=== PATIENT | female | born 1925 | race Caucasian/White ===

== ENCOUNTER 2016-11-12 12:05 | Emergency (ER) | payer MEDICARE, BC ==
[~2016-11-12] VITALS: Ht 162.6 cm; Wt 81.6 kg
[~2016-11-12 12:05] MED LIST: ACET325T21 PO; ACET325T9 PO; ACET500T68 PO; ALPR0.254 PO; AMIT50TA PO; AMLO5TAB2 PO; ASPI-612 PO; ATORVASTATIN CA80 MG PO; CALC200T51 PO; CALC300T5 PO; CARV12.5 PO; CELE200C PO; CEPH-264 PO; CHOL10002 PO; CLOP75TA57 PO; CRESTOR20 MG PO; DIAZ5TAB PO; DIPH1TAB PO; DOCU-109 PO; ESZO3TAB28 PO; FURO20TA3 PO; HYDR-2678 PO; HYDR-2758 PO; HYDR30CR61 RC; LANS30CA66 PO; LIDO700A4 TP; LISI-338 PO; LISI5TAB PO; METO10TA81 PO; MULT1TAB57 PO; ONDA4TAB7 PO; PANT40TA5 PO; PRED-220 PO; RAMI2.5C PO; SENN1TAB9 PO; SUCR1TAB35 PO; SULF1TAB24 PO; ZOLP5TAB PO
[2016-11-12] MEDS ORDERED: HYDROcodone/APAP 5/325MG 1 TAB TABLET PO ONE (12:30)
--- NOTE | 2016-11-12 13:17 | RAD ---
Indication: Right shoulder pain. Time of exam 12:41 PM There are glenohumeral joint degenerative changes with joint space narrowing and marginal spurring. Glenohumeral and acromial clavicular alignment are normal. No fracture or dislocation is identified. Impression: Degenerative changes to the right shoulder. No acute bony abnormality is detected.
--- NOTE | 2016-11-12 15:00 | ED.ADGEN ---
Past Medical History Past Medical History: Anxiety, Arthritis, CAD, CHF, Constipation, COPD, CVA, Depression, GERD, High Cholesterol, Hypertension, [place] Additional Past Medical Histor: chronic abd pain Past Surgical History: Other Additional Past Surgical Histo: HEART SURGERY Alcohol Use: None Drug Use: None Adult General Chief Complaint Chief Complaint: SHOUDLER HPI HPI Patient is a 89 year old halfway patient presents with right shoulder pain , tenderness recollection of injury. Patient was evaluated for this complaint 2 days ago and had ridging studies of right arm and right forearm which were negative for acute injury. Patient is on Plavix, she also has some subcutaneous purpura. Patient's arm does not feel tighter tense. She has good pulses in range of motion in wrist elbow and shoulder. Pulses are 2+. There is no neurologic deficits. Right shoulder pain reproduces with palpation and active range of motion. Patient chest pain, shortness of breath, or neck pain. She denies any other acute symptoms or complaints. Review of Systems Review of Systems Review of symptoms as per history of present illness. All other review of symptoms are negative. Current Medications Current Medications Current Medications Medications (Trade) Dose Ordered Sig/Bharath Start Time Stop Time Status Last Admin Dose Admin Acetaminophen/ Hydrocodone Bitart (Lortab 5/325) 1 tab 1X ONCE 11/12/16 12:30 11/12/16 12:31 DC 11/12/16 12:28 1 TAB Allergies Allergies Allergies Coded Allergies Type Severity Reaction Last Updated Verified meperidine Allergy Intermediate 12/30/14 Yes phenobarbital Allergy Intermediate 09/02/14 Yes Physical Exam Physical Exam Constitutional: Well developed, well nourished, no acute distress, non-toxic appearance. HENT: Normocephalic, atraumatic, bilateral external ears normal, oropharynx moist, no oral exudates, nose normal. Eyes: PERRLA, EOMI, conjunctiva normal. Neck: Normal range of motion, no nontender tenderness. Cardiovascular:Heart rate regular rhythm, no murmur. Lungs & Thorax: Bilateral breath sounds clear to auscultation. Abdomen: Bowel sounds normal, soft, no tenderness, no masses, no pulsatile masses. Skin: Warm, dry. Back: No tenderness, no CVA tenderness. Extremities: Right upper extremity, no deformity, swelling. Subcutaneous purpura noted and right humeral, forearm region. Reasonable shoulder pain with active range of motion. Full range of motion right elbow and right wrist. Arm does not feel tight and tense. No palpable cords. Radial pulses 2+. No cellulitis or evidence of infection. Neurologic: Alert and oriented X 3, M.D., normal motor function, sensation. Psychologic: Affect normal, judgement normal, mood normal. Current Patient Data Vital Signs Vital Signs Date Time Temp Pulse Resp B/P (MAP) Pulse Ox O2 Delivery O2 Flow Rate FiO2 11/12/16 15:04 82 136/59 (84) 91 Room Air 11/12/16 12:10 98.9 20 98.9 EKG EKG [] Radiology/Procedures Radiology/Procedures [Shoulder x-ray: Degenerative changes per radiology report.] Course & Med Decision Making Course & Med Decision Making Pertinent Labs and Imaging studies reviewed. (See chart for details) [Reproducible right shoulder pain without evidence of acute injury. Other acute diagnoses considered, but thought unlikely. No additional workup indicated at this time. Case discussed with Dr. Rosales, will see patient on outpatient basis. Patient discharged home in sling.] Dragon Disclaimer Dragon Disclaimer This electronic medical record was generated, in whole or in part, using a voice recognition dictation system. JOANNA YANEZ DO Nov 12, 2016 15:00
[2016-11-12 15:04] VITALS: BP 136/59
== END 2016-11-12 15:45 | disposition home or self-care (01) ==
LOC: ER 12:05
DX: M25.511 Pain in right shoulder (principal); D69.2 Other nonthrombocytopenic purpura; E78.00 Pure hypercholesterolemia, unspecified; F32.9 Major depressive disorder, single episode, unspecified; F41.9 Anxiety disorder, unspecified; I11.0 Hypertensive heart disease with heart failure; I50.9 Heart failure, unspecified; I25.10 Atherosclerotic heart disease of native coronary artery without angina pectoris; J44.9 Chronic obstructive pulmonary disease, unspecified; K21.9 Gastro-esophageal reflux disease without esophagitis; I25.2 Old myocardial infarction; M19.90 Unspecified osteoarthritis, unspecified site; G89.29 Other chronic pain; Z86.73 Personal history of transient ischemic attack (TIA), and cerebral infarction without residual deficits; Z79.02 Long term (current) use of antithrombotics/antiplatelets; Z88.8 Allergy status to other drugs, medicaments and biological substances
CPT/HCPCS: 73030; 99284

== ENCOUNTER 2016-12-09 07:26 | Inpatient (IN) | payer MEDICARE, BC ==
[~2016-12-09] VITALS: Ht 162.6 cm; Wt 87.1 kg
[2016-12-09] MEDS ORDERED: IPRATRPIUM/ALBUTEROL 0.5/2.5MG 3 ML NEBU. NEB ONE (08:00)
[2016-12-09] MEDS ORDERED: IV NORMAL SALINE 1000ML BAG 1,000 ML IV ONE (08:00)
--- NOTE | 2016-12-09 08:03 | ED.ADGEN ---
Past Medical History Past Medical History: Anxiety, Arthritis, CAD, CHF, Constipation, COPD, CVA, Depression, GERD, High Cholesterol, Hypertension, [place] Additional Past Medical Histor: chronic abd pain Past Surgical History: Other Additional Past Surgical Histo: HEART SURGERY Alcohol Use: None Drug Use: None Adult General Chief Complaint Chief Complaint: ALTERED MENTAL STATUS HPI HPI Patient is a 89 year old woman, history of COPD, CVA, hypertension, CAD status post [place], chronic abdominal pain, anxiety, depression, who presents the emergency department with a report of altered mental status per nursing facility. Upon arrival, patient noted be febrile, 101.2 rectally, tachycardic in the low 100s, oxygen saturation in the mid 80s on room air. Patient does not use oxygen at baseline. Patient states that she is feeling "okay", is answering questions appropriately in the ED, and denying complaints. No recent antibiotic use per reports, patient is a history of recurrent UTIs. [facility] staff [facility] for [facility] information. Review of Systems Review of Systems Constitutional: Denies fever or chills. [] Eyes: Denies change in visual acuity. [] HENT: Denies nasal congestion or sore throat. [] Respiratory: Denies cough or shortness of breath. [] Cardiovascular: Denies chest pain or edema. [] GI: Denies abdominal pain, nausea, vomiting, bloody stools or diarrhea. [] : Denies dysuria. [] Musculoskeletal: Denies back pain or joint pain. [] Integument: Denies rash. [] Neurologic: Denies headache, focal weakness or sensory changes. [] Endocrine: Denies polyuria or polydipsia. [] Lymphatic: Denies swollen glands. [] Psychiatric: Denies depression or anxiety. [] Patient is denying complaints, but is limited in her history Current Medications Current Medications Current Medications Medications (Trade) Dose Ordered Sig/Bharath Start Time Stop Time Status Last Admin Dose Admin Albuterol/ Ipratropium (Duoneb) 3 ml 1X ONCE 12/09/16 08:00 12/09/16 08:01 DC 12/09/16 08:24 3 ML Sodium Chloride 1,000 ml @ 1,000 mls/hr 1X ONCE 12/09/16 08:00 12/09/16 08:59 DC 12/09/16 09:39 1,000 MLS/HR Allergies Allergies Allergies Coded Allergies Type Severity Reaction Last Updated Verified meperidine Allergy Intermediate 12/30/14 Yes phenobarbital Allergy Intermediate 09/02/14 Yes Physical Exam Physical Exam Constitutional: Well developed, well nourished, ill in appearance. [] HENT: Normocephalic, atraumatic, bilateral external ears normal, oropharynx moist, no oral exudates, nose normal. [] Eyes: PERRLA, EOMI, conjunctiva normal, no discharge. [] Neck: Normal range of motion, no tenderness, supple, no stridor. [] Cardiovascular: Tachycardic, no murmur, S1, S2, no rubs or gallops, soft heart sounds. [] Lungs & Thorax: Coarse breath sounds and wheezing noted scattered throughout, patient on nasal cannula, 2 L with oxygen saturation in the mid 90s, "mouth breathing". [] Abdomen: Bowel sounds normal, soft, no tenderness, no rebound, rigidity, no guarding, no masses, no pulsatile masses. [] Skin: Warm, dry, no erythema, no rash. [] Back: No tenderness, no CVA tenderness. [] Extremities: No tenderness, no cyanosis, no clubbing, ROM intact, no edema. Negative Homans sign. [] Neurologic: Alert and oriented X 3, normal motor function, normal sensory function, no focal deficits noted. [] Psychologic: Affect normal, judgement normal, mood normal. [] Current Patient Data Vital Signs Vital Signs Date Time Temp Pulse Resp B/P (MAP) Pulse Ox O2 Delivery O2 Flow Rate FiO2 12/09/16 08:28 101.8 102 30 192/78 (116) 88 Room Air 101.8 Lab Values Laboratory Tests Test 12/09/16 08:15 Urine Collection Type U cath Urine Color Yellow Urine Clarity Cloudy Urine pH 6.5 Urine Specific [place] 1.015 Urine Protein 30 mg/dL (NEG-TRACE) Urine Glucose (UA) Negative mg/dL (NEG) Urine Ketones (Stick) Negative mg/dL (NEG) Urine Blood Moderate (NEG) Urine Nitrite Positive (NEG) Urine Bilirubin Negative (NEG) Urine Urobilinogen Dipstick 2.0 mg/dL (0.2 mg/dL) Urine Leukocyte Esterase Moderate (NEG) Urine RBC Fobs /HPF (0-2) Urine WBC >40 /HPF (0-4) Urine Squamous Epithelial Cells Few /LPF Urine Bacteria Many /HPF (0-FEW) Urine Hyaline Casts Few /HPF Urine Mucus Marked /LPF Urine Opiates Screen Pos (NEG) Urine Methadone Screen Neg (NEG) Urine Barbiturates Neg (NEG) Urine Phencyclidine Screen Neg (NEG) Urine Amphetamine/Methamphetamine Neg (NEG) Urine Benzodiazepines Screen Neg (NEG) Urine Cocaine Screen Neg (NEG) Urine Cannabinoids Screen Neg (NEG) Urine Ethyl Alcohol Neg (NEG) EKG EKG EC: Sinus tachycardia, heart rate 104 bpm, left axis deviation, QTC of 445, LA 108, QRS of 98, no ST depressions or elevations, mild baseline artifact noted, abnormal ECG, does not meet STEMI criteria. As interpreted by me. [] Radiology/Procedures Radiology/Procedures [][facility] [address] [place] [address] IMAGING REPORT Signed PATIENT: ISABEL BUTLER ACCOUNT: [id number] : 1925 LOCATION: ER AGE: 89 SEX: F EXAM STATUS: REG ER ORD. PHYSICIAN: COLBY EATON DO REASON: AMS PROCEDURE: CHEST AP ONLY Indication change in mental status. Suspect CVA. Protocol exam. Postoperative changes are noted. Heart size is unchanged. There is no gross congestive heart failure. There is suggested volume loss in the left lower lobe. This may reflect atelectasis and pleural fluid. Pneumonia is less likely. There is no pneumothorax. IMPRESSION: Suspect volume loss in the left lower lobe. DICTATED and SIGNED BY: JANA DICKSON MD DATE: 12/09/16 08 CC: REY ROSALES MD; COLBY EATON DO ~ Course & Med Decision Making Course & Med Decision Making Pertinent Labs and Imaging studies reviewed. (See chart for details) Patient ill-appearing, concern for sepsis, paperwork nu from the nursing facility does not indicate if patient is full code or DNR, there are 2 conflicting orders noted, nursing facility contacted, and confirmed the patient is full code. Oxygen saturation improved in 2 L cannula stated, patient initiated on sepsis protocol with initiation of IV fluids, chest x-ray concerning for possible pneumonia, consistent with patient's examination findings, nitrate positive urinary tract infection also noted. Patient initiated on healthcare associated pneumonia antibiotic coverage, blood cultures are pending. Findings as above discussed with Dr. Rosales, the patient's primary care provider, patient accepted to his service as a full admission to the medical telemetry floor with bridge orders entered per discussion. Dragon Disclaimer Dragon Disclaimer This electronic medical record was generated, in whole or in part, using a voice recognition dictation system. Departure Impression: Primary Impression: Sepsis Disposition: 09 ADMITTED INPATIENT Admitting Physician: Rey Rosales Condition: IMPROVED COLBY EATON DO Dec 09, 2016 08:03
--- NOTE | 2016-12-09 08:12 | RAD ---
Indication change in mental status. Suspect CVA. Protocol exam. Postoperative changes are noted. Heart size is unchanged. There is no gross congestive heart failure. There is suggested volume loss in the left lower lobe. This may reflect atelectasis and pleural fluid. Pneumonia is less likely. There is no pneumothorax. IMPRESSION: Suspect volume loss in the left lower lobe.
--- NOTE | 2016-12-09 08:26 | EKG ---
[facility] [address] [place] [address] Test Date: 2016-12-09 Test Time: 07:56:00 Pat Name: ISABEL BUTLER Department: Room: Gender: F Fitting Room Checker: : 1925 Requested By: COLBY EATON Order Number: [id number] Reading MD: Rigoberto Eddy Measurements Intervals [place] Rate: 104 P: -44 WA: 108 QRS: -10 QRSD: 98 T: 75 QT: 334 QTc: 445 Interpretive Statements SINUS TACHYCARDIA Electronically Signed On 12-13-2016 14:48:28 CDT by Rigoberto Eddy
[2016-12-09 08:32] LABS: BILIRUBIN,URINE NEGATIVE (NEG); GLUCOSE,URINE NEGATIVE (NEG); NITRITE,URINE POSITIVE (NEG); PH,URINE 6.5; PROTEIN,URINE 30 mg/dL (NEG-TRACE)
[2016-12-09 08:46] LABS: BACTERIA,URINE MANY /HPF (0-FEW); SQUAMOUS EPITHELIAL CELL,UR FEW /LPF; WBC,URINE >40 /HPF (0-4)
[2016-12-09 08:47] LABS: RBC,URINE FOBS /HPF (0-2)
[2016-12-09 08:51] LABS: BARBITURATES NEG (NEG); BENZODIAZEPINES NEG (NEG); CANNABINOIDS NEG (NEG); COCAINE NEG (NEG); METHADONE NEG (NEG); OPIATES POS (NEG); PHENCYCLIDINE NEG (NEG)
[2016-12-09] MEDS ORDERED: VANCOMYCIN PER PHARMACY MC PRN (09:00)
[2016-12-09] MEDS ORDERED: CEFEPIME HCL 2 GM in IV NORMAL SALINE 100ML 100 ML IV ONE (09:00)
[2016-12-09] MEDS ORDERED: VANCOMYCIN 2 GM in IV NORMAL SALINE 500ML BAG 500 ML IV ONE (10:00)
[2016-12-09 10:13] LABS: BASO # 0.1 x10^3/uL (0.0-0.2); BASO % 1 % (0-3); EOS % 1 % (0-3); HEMATOCRIT 32.6 % (36.0-47.0); HEMOGLOBIN 10.7 g/dL (12.0-15.5); LYMPH # 4.9 x10^3/uL (1.0-4.8); LYMPH % 39 % (24-48); MEAN CORPUSCULAR HEMOGLOBIN 28 pg (25-35); MEAN CORPUSCULAR HGB CONC 33 g/dL (31-37); MEAN CORPUSCULAR VOLUME 87 fL (79-100); MONO % 11 % (0-9); NEUT % 48 % (31-73); PLATELET COUNT 121 x10^3/uL (140-400); RED BLOOD COUNT 3.77 x10^6/uL (3.50-5.40); RED CELL DISTRIBUTION WIDTH 17.3 % (11.5-14.5); WHITE BLOOD COUNT 12.5 x10^3/uL (4.0-11.0)
[2016-12-09] MEDS: IV NORMAL SALINE 1000ML BAG 1,000 ML IV SCH ×3 (11:03→17:48)
[2016-12-09 11:08] LABS: CALCIUM 8.4 mg/dL (8.5-10.1); CREATININE 1.1 mg/dL (0.6-1.0); GFR 46.8; POTASSIUM 3.4 mmol/L (3.5-5.1)
[2016-12-09 11:14] LABS: ALBUMIN 2.5 g/dL (3.4-5.0); ALBUMIN/GLOBULIN RATIO 0.8 (1.0-1.7); TOTAL BILIRUBIN 0.5 mg/dL (0.2-1.0); TOTAL PROTEIN 5.7 g/dL (6.4-8.2)
[2016-12-09] MEDS ORDERED: ONDANSETRON PF 4 MG/2 ML VIAL. IV PRN (11:15)
[2016-12-09 11:57] VITALS: BP 126/56
[2016-12-09] MEDS: IPRATRPIUM/ALBUTEROL 0.5/2.5MG 3 ML NEBU. NEB SCH ×3 (12:00→20:41)
[2016-12-09] MEDS ORDERED: MAGN400O7 PO (13:08)
[2016-12-09] MEDS ORDERED: LOPE2CAP PO (13:08)
[2016-12-09] MEDS ORDERED: CRESTOR20 MG PO (13:08)
--- NOTE | 2016-12-09 14:28 | PDOC ---
Provider Note Provider Note [id number] FRANCISCA HAMPTON MD Dec 09, 2016 14:28
[2016-12-09] MEDS ORDERED: MAGNESIUM HYDROXIDE 2,400 MG/30 ML ORAL.SUSP. PO PRN (14:30)
[2016-12-09] MEDS ORDERED: HYDROcodone/APAP 5/325MG 1 TAB TABLET PO PRN (14:30)
[2016-12-09] MEDS ORDERED: ACETAMINOPHEN 325 MG TABLET. PO PRN (14:30)
[2016-12-09 15:00] VITALS: BP 126/56
[2016-12-09] MEDS: ALPRAZolam 0.25 MG TABLET PO PRN (17:48)
[2016-12-09] MEDS: METOCLOPRAMIDE 10 MG TABLET. PO SCH ×2 (17:48→21:39)
[2016-12-09] MEDS: ASPIRIN ENTERIC COATED 81 MG TABLET.DR. PO SCH (17:48)
[2016-12-09] MEDS: CARVEDILOL 12.5 MG TABLET. PO SCH (17:49)
--- NOTE | 2016-12-09 17:54 | HP ---
ADMIT DATE: CHIEF COMPLAINT: Fever. HISTORY OF PRESENT ILLNESS: An 89-year-old white female, resident of senior living, has a history of hypertension and congestive heart failure and is on multiple meds and apparently came in because of fever and confusion. She was found to have a urinary tract infection, lot of white cells in urine as ____ received vancomycin and Maxipime so far. She has no complaints, denies any other symptoms at this time. PAST MEDICAL HISTORY: Well documented in the old records. MEDICATIONS: Multiple meds listed per the chart. ALLERGIES: TO DEMEROL AND ____. SOCIAL HISTORY: She is , lives in custodial center nonsmoker, nondrinker. FAMILY HISTORY: Unremarkable. REVIEW OF SYSTEMS: No other complaints. OBJECTIVE: ENT: All within normal limits. NECK: No nodes or bruits. LUNGS: Decreased breath sounds. No tachypnea or wheezing. CARDIOVASCULAR: Regular rate. No tachycardia or murmur. ABDOMEN: Soft, benign and nontender. BACK: No tenderness over both flanks. EXTREMITIES: She has some tenderness diffusely in both lower extremities, 1+ pretibial edema. Pedal pulses are decreased. SKIN: Warm. NEUROLOGIC: She is alert and responsive, not typically well oriented and moves all extremities. Slightly gait was not tested. No cerebellar dysfunction or cranial nerve abnormalities were noted. ASSESSMENT: Urinary tract infection with fever as most likely source of infection. LABORATORY DATA: Otherwise looked good. PLAN: Continue Maxipime normally for now, vancomycin was stopped. Not like it could be useful with this urinary tract infection. FRANCISCA HAMPTON MD DR: ELIZABETH/lucrecia JOB#: [id number] / [id number]
[2016-12-09 19:00] VITALS: BP 151/74
[2016-12-09] MEDS: DOCUSATE SODIUM 100 MG CAPSULE. PO SCH (21:38)
[2016-12-09] MEDS: AMITRIPTYLINE HCL 50 MG TABLET PO SCH (21:38)
[2016-12-09] MEDS: SENNOSIDES/DOCUSATE 8.6/50MG TABLET. PO SCH (21:38)
[2016-12-09] MEDS: amLODIPine BESYLATE 5 MG TABLET PO SCH (21:39)
[2016-12-09] MEDS: ACETAMINOPHEN 325 MG TABLET. PO PRN (21:39)
[2016-12-09] MEDS: CEFEPIME HCL 2 GM in IV NORMAL SALINE 100ML 100 ML IV SCH (21:41)
[2016-12-09 23:00] VITALS: BP 134/57
--- NOTE | 2016-12-10 00:22 | ACF ---
Admission Forms Criteria SEPSIS and OTHER FEBRILE ILLNESS, W/O FOCAL INFECTION Clinical Indications for Admission to Inpatient Care ( Place 'X' for any and all applicable criteria): Admission is indicated for ANY ONE of the following (1)(2)(3)(4): [ ] I. Bacteremia [ X]II. Suspected or identified specific infection requiring hospitalization (eg, meningitis, endocarditis) [ ]III. Hemodynamic instability [ X]IV. Altered mental status [ ]V. Failure or unavailability of outpatient antimicrobial treatment [ ]. Hypoxemia [ ]VII. Seizures [ ]VIII. High-risk febrile neutropenia [ ]IX. Need for parenteral antibiotic in patient who is likely to abuse vascular access device (eg, injection drug user) [A](7) [ ]X. Temperature greater than 104.9 degrees F (40.5 degrees C) (oral) [ ]XI. Inpatient admission required rather than observation care because of ANY ONE of the following: [ ]1) Specific infection identified that is too severe for outpatient treatment or observation care trial [ ]2) Metabolic disorder (eg, hypoglycemia, hyperglycemia, metabolic acidosis) that is severe or persistent [ ]3) Temperature greater than 103.1 degrees F (39.5 degrees C) ( oral) that is not responsive to observation care treatment [ ]4) IV fluid to replace significant ongoing (eg, for over 24 hours) losses (> 3 L/m2 per day) [ ]5) Supplemental oxygen or respiratory treatments for over 24 hours that is performable only in acute inpatient setting [ ]6) Parenteral nutrition regimen need that must be implemented on inpatient basis [ ]7) Strict or protective (eg, laminar flow) isolation [ ]8) Other condition, treatment or monitoring requiring inpatient admission Extended stay beyond goal length of stay may be needed for(1)(3) [ ]a) Sepsis or septic shock(22) [ ]b) Positive blood cultures [ ]c) Insufficient oral intake [ ]d) High-risk febrile neutropenia(29)(30) [ ]e) Continued fever and clinical instability [ ]f) Clinically active comorbid illness (e.g,heart failure, renal failure , diabetes) The original [facility] [employer] content created by Margarito Gore has been revised. The portions of the content which have been revised are identified through the use of italic text or in bold, and Margarito Gore has neither reviewed nor approved the modified material. All other unmodified content is copyright [facility]. Please see references footnoted in the original [facility] edition 2016 Admission Criteria Met?: Yes YARA HERRERA Dec 10, 2016 00:22
[2016-12-10 02:17] VITALS: BP 101/40
[2016-12-10 07:00] VITALS: BP 135/62
[2016-12-10] MEDS: IPRATRPIUM/ALBUTEROL 0.5/2.5MG 3 ML NEBU. NEB SCH ×4 (07:48→20:07)
[2016-12-10 08:27] LABS: CALCIUM 7.5 mg/dL (8.5-10.1); CREATININE 1.2 mg/dL (0.6-1.0); GFR 42.3
--- NOTE | 2016-12-10 08:31 | PDOC ---
GENERAL General: vss with tmax 102 last pm. evidence of uti on lab and questionable lung process LLL on cxr. will ask for ID help. mental status this am is close to her baseline. expiratory wheezing on exam. ongoing antibiotics. otherwise same. Problems: VITAL SIGNS Vital Signs: Vital Signs Date Time Temp Pulse Resp B/P (MAP) Pulse Ox O2 Delivery O2 Flow Rate FiO2 12/10/16 07:48 98 Nasal Cannula 2.0 12/10/16 02:17 97.9 72 20 101/40 (60) 97.9 I & O I & O Intake and Output 12/10/16 07:00 Intake Total 1350 ml Balance 1350 ml Intake Oral 250 ml IV Total 1100 ml # Voids 6 ALLERGIES Allergies: Allergies Coded Allergies Type Severity Reaction Last Updated Verified meperidine Allergy Intermediate 12/30/14 Yes phenobarbital Allergy Intermediate 09/02/14 Yes MEDS Medications: Current Medications Medications (Trade) Dose Ordered Sig/Bharath Start Time Stop Time Status Last Admin Dose Admin Acetaminophen (Tylenol) 650 mg PRN BID PRN 12/09/16 14:30 Acetaminophen/ Hydrocodone Bitart (Lortab 5/325) 1 tab PRN Q6HRS PRN 12/09/16 14:30 Albuterol/ Ipratropium (Duoneb) 3 ml RTQID 12/09/16 12:00 12/10/16 11:59 12/10/16 07:48 3 ML Alprazolam (Xanax) 0.25 mg PRN TID PRN 12/09/16 14:30 12/09/16 17:48 0.25 MG Amitriptyline HCl (Amitriptyline HCl) 50 mg HS 12/09/16 21:00 12/09/16 21:38 50 MG Amlodipine Besylate (Norvasc) 5 mg HS 12/09/16 21:00 12/09/16 21:39 5 MG Aspirin (Ecotrin) 81 mg DAILY08 12/09/16 15:00 12/09/16 17:48 81 MG Carvedilol (Coreg) 12.5 mg BIDWMEALS 12/09/16 17:00 12/09/16 17:49 12.5 MG Cefepime HCl 2 gm/ Sodium Chloride 100 ml @ 200 mls/hr 1X ONCE 12/09/16 09:00 12/09/16 09:29 DC 12/09/16 09:32 200 MLS/HR Celecoxib (CeleBREX) 200 mg DAILY 12/10/16 09:00 Clopidogrel Bisulfate (Plavix) 75 mg DAILY 12/10/16 09:00 Docusate Sodium (Colace) 100 mg BID 12/09/16 21:00 12/09/16 21:38 100 MG Furosemide (Lasix) 20 mg DAILY 12/10/16 09:00 Lisinopril (Prinivil) 5 mg DAILY 12/10/16 09:00 Magnesium Hydroxide (Milk Of Magnesia) 2,400 mg PRN DAILY PRN 12/09/16 14:30 Metoclopramide HCl (Reglan) 5 mg QID 12/09/16 17:00 12/09/16 21:39 5 MG Ondansetron HCl (Zofran) 4 mg PRN Q8HRS PRN 12/09/16 11:15 12/10/16 11:14 Pantoprazole Sodium (Protonix) 40 mg DAILYAC 12/10/16 07:30 Prednisone (Prednisone) 10 mg DAILY08 12/10/16 08:00 Senna/Docusate Sodium (Senna Plus) 1 tab BID 12/09/16 21:00 12/09/16 21:38 1 TAB Sodium Chloride 1,000 ml @ 292 mls/hr Q3H26M 12/09/16 09:32 12/09/16 17:57 DC 12/09/16 17:48 292 MLS/HR Vancomycin HCl 1 each 1X ONCE 12/11/16 10:00 12/11/16 10:01 Cancel Vancomycin HCl (Vanco Per Pharmacy) 1 each PRN DAILY PRN 12/09/16 09:00 12/09/16 14:32 DC 12/09/16 13:35 1 EACH Vancomycin HCl 1.25 gm/Sodium Chloride 250 ml @ 167 mls/hr Q24H 12/10/16 10:30 12/10/16 10:30 DC Vancomycin HCl 2 gm/Sodium Chloride 500 ml @ 250 mls/hr 1X ONCE 12/09/16 10:00 12/09/16 11:59 DC 12/09/16 10:30 250 MLS/HR Vitamin D (Vitamin D3) 1,000 unit DAILY08 12/10/16 08:00 LAB Lab: Laboratory Tests Test 12/09/16 09:00 12/09/16 10:05 12/09/16 10:40 12/10/16 07:40 Lactic Acid Level 1.1 mmol/L (0.4-2.0) 0.6 mmol/L (0.4-2.0) White Blood Count 12.5 x10^3/uL (4.0-11.0) Red Blood Count 3.77 x10^6/uL (3.50-5.40) Hemoglobin 10.7 g/dL (12.0-15.5) Hematocrit 32.6 % (36.0-47.0) Mean Corpuscular Volume 87 fL (79-100) Mean Corpuscular Hemoglobin 28 pg (25-35) Mean Corpuscular Hemoglobin Concent 33 g/dL (31-37) Red Cell Distribution Width 17.3 % (11.5-14.5) Platelet Count 121 x10^3/uL (140-400) Neutrophils (%) (Auto) 48 % (31-73) Lymphocytes (%) (Auto) 39 % (24-48) Monocytes (%) (Auto) 11 % (0-9) Eosinophils (%) (Auto) 1 % (0-3) Basophils (%) (Auto) 1 % (0-3) Neutrophils # (Auto) 6.0 x10^3uL (1.8-7.7) Lymphocytes # (Auto) 4.9 x10^3/uL (1.0-4.8) Monocytes # (Auto) 1.4 x10^3/uL (0.0-1.1) Eosinophils # (Auto) 0.1 x10^3/uL (0.0-0.7) Basophils # (Auto) 0.1 x10^3/uL (0.0-0.2) Sodium Level 142 mmol/L (136-145) 144 mmol/L (136-145) Potassium Level 3.4 mmol/L (3.5-5.1) 4.0 mmol/L (3.5-5.1) Chloride Level 108 mmol/L (98-107) 111 mmol/L (98-107) Carbon Dioxide Level 24 mmol/L (21-32) 25 mmol/L (21-32) Anion Gap 10 (6-14) 8 (6-14) Blood Urea Nitrogen 21 mg/dL (7-20) 18 mg/dL (7-20) Creatinine 1.1 mg/dL (0.6-1.0) 1.2 mg/dL (0.6-1.0) Estimated GFR (Cockcroft-Gault) 46.8 42.3 BUN/Creatinine Ratio 19 (6-20) Glucose Level 105 mg/dL (70-99) 78 mg/dL (70-99) Calcium Level 8.4 mg/dL (8.5-10.1) 7.5 mg/dL (8.5-10.1) Total Bilirubin 0.5 mg/dL (0.2-1.0) Aspartate Amino Transf (AST/SGOT) 19 U/L (15-37) Alanine Aminotransferase (ALT/SGPT) 19 U/L (14-59) Alkaline Phosphatase 44 U/L (46-116) Troponin I Quantitative 0.074 ng/mL (0.000-0.055) GT-Tmc-W-Type Natriuretic Peptide 417 pg/mL (0-449) Total Protein 5.7 g/dL (6.4-8.2) Albumin 2.5 g/dL (3.4-5.0) Albumin/Globulin Ratio 0.8 (1.0-1.7) REY ARGUETA MD Dec 10, 2016 08:31
[2016-12-10] MEDS: LISINOPRIL 5 MG TABLET. PO SCH (10:00)
[2016-12-10] MEDS: CARVEDILOL 12.5 MG TABLET. PO SCH ×2 (10:00→18:25)
[2016-12-10] MEDS: CEFEPIME HCL 2 GM in IV NORMAL SALINE 100ML 100 ML IV SCH ×2 (10:08→21:03)
[2016-12-10] MEDS: PANTOPRAZOLE 40 MG TABLET.DR. PO SCH (10:09)
[2016-12-10] MEDS: CHOLECALCIFEROL (VITAMIN D3) 1,000 UNIT TABLET PO SCH (10:09)
[2016-12-10] MEDS: CELECOXIB 200 MG CAPSULE. PO SCH (10:09)
[2016-12-10] MEDS: FUROSEMIDE 20 MG TABLET PO SCH (10:09)
[2016-12-10] MEDS: DOCUSATE SODIUM 100 MG CAPSULE. PO SCH ×2 (10:09→21:00)
[2016-12-10] MEDS: ASPIRIN ENTERIC COATED 81 MG TABLET.DR. PO SCH (10:09)
[2016-12-10] MEDS: SENNOSIDES/DOCUSATE 8.6/50MG TABLET. PO SCH ×2 (10:09→21:03)
[2016-12-10] MEDS: CLOPIDOGREL BISULFATE 75 MG TABLET PO SCH (10:09)
[2016-12-10] MEDS: ALPRAZolam 0.25 MG TABLET PO PRN (10:09)
[2016-12-10] MEDS: predniSONE 10 MG TABLET PO SCH (10:10)
[2016-12-10] MEDS: ACETAMINOPHEN 325 MG TABLET. PO PRN (10:10)
[2016-12-10] MEDS: METOCLOPRAMIDE 10 MG TABLET. PO SCH ×4 (10:13→21:00)
[2016-12-10] MEDS ORDERED: VANCOMYCIN 1.25 GM in IV NORMAL SALINE 250ML 250 ML IV SCH (10:30)
[2016-12-10 11:00] VITALS: BP 125/60
[2016-12-10 11:53] LABS: BASO # 0.1 x10^3/uL (0.0-0.2); BASO % 1 % (0-3); EOS % 2 % (0-3); HEMATOCRIT 34.2 % (36.0-47.0); HEMOGLOBIN 10.9 g/dL (12.0-15.5); LYMPH # 3.7 x10^3/uL (1.0-4.8); LYMPH % 32 % (24-48); MEAN CORPUSCULAR HEMOGLOBIN 29 pg (25-35); MEAN CORPUSCULAR HGB CONC 32 g/dL (31-37); MEAN CORPUSCULAR VOLUME 89 fL (79-100); MONO % 7 % (0-9); NEUT % 59 % (31-73); PLATELET COUNT 109 x10^3/uL (140-400); RED BLOOD COUNT 3.84 x10^6/uL (3.50-5.40); RED CELL DISTRIBUTION WIDTH 17.5 % (11.5-14.5); WHITE BLOOD COUNT 11.4 x10^3/uL (4.0-11.0)
--- NOTE | 2016-12-10 12:38 | PDOC ---
Infectious Disease Note Vital Sign Vital Signs Vital Signs Date Time Temp Pulse Resp B/P (MAP) Pulse Ox O2 Delivery O2 Flow Rate FiO2 12/10/16 12:00 Nasal Cannula 2.0 12/10/16 11:00 98.8 87 20 125/60 (81) 94 98.8 Labs Lab Laboratory Tests Test 12/10/16 07:40 12/10/16 11:40 Sodium Level 144 mmol/L (136-145) Potassium Level 4.0 mmol/L (3.5-5.1) Chloride Level 111 mmol/L (98-107) Carbon Dioxide Level 25 mmol/L (21-32) Anion Gap 8 (6-14) Blood Urea Nitrogen 18 mg/dL (7-20) Creatinine 1.2 mg/dL (0.6-1.0) Estimated GFR (Cockcroft-Gault) 42.3 Glucose Level 78 mg/dL (70-99) Calcium Level 7.5 mg/dL (8.5-10.1) White Blood Count 11.4 x10^3/uL (4.0-11.0) Red Blood Count 3.84 x10^6/uL (3.50-5.40) Hemoglobin 10.9 g/dL (12.0-15.5) Hematocrit 34.2 % (36.0-47.0) Mean Corpuscular Volume 89 fL (79-100) Mean Corpuscular Hemoglobin 29 pg (25-35) Mean Corpuscular Hemoglobin Concent 32 g/dL (31-37) Red Cell Distribution Width 17.5 % (11.5-14.5) Platelet Count 109 x10^3/uL (140-400) Neutrophils (%) (Auto) 59 % (31-73) Lymphocytes (%) (Auto) 32 % (24-48) Monocytes (%) (Auto) 7 % (0-9) Eosinophils (%) (Auto) 2 % (0-3) Basophils (%) (Auto) 1 % (0-3) Neutrophils # (Auto) 6.7 x10^3uL (1.8-7.7) Lymphocytes # (Auto) 3.7 x10^3/uL (1.0-4.8) Monocytes # (Auto) 0.8 x10^3/uL (0.0-1.1) Eosinophils # (Auto) 0.2 x10^3/uL (0.0-0.7) Basophils # (Auto) 0.1 x10^3/uL (0.0-0.2) Objective Assessment Fever GNR UTI. POA, 12/09 Acute encephalopathy hypoxia, AECOPD vs HCAP h/o Enterobacter & E. coli R quinolones Plan Plan of Care continue abx await GNR ID On steroids Monitor temp, WBC and Cr Supportive care Thank you [id number] dictation abruptly ended [id number] Attending Co-Sign The patient was seen and interviewed as well as examined at the bedside. The chart was reviewed. The case was discussed. Agree with the plan of care. TANIKA FONG APRN Dec 10, 2016 12:38 STEPHANIE GALLOWAY MD Dec 10, 2016 16:15
[2016-12-10 15:00] VITALS: BP 122/65
[2016-12-10 18:26] VITALS: BP 103/62
[2016-12-10 19:00] VITALS: BP 125/81
[2016-12-10] MEDS: amLODIPine BESYLATE 5 MG TABLET PO SCH (21:05)
[2016-12-10] MEDS: AMITRIPTYLINE HCL 50 MG TABLET PO SCH (21:05)
[2016-12-11 03:00] VITALS: BP 115/72
--- NOTE | 2016-12-11 03:24 | CONS ---
DATE OF CONSULTATION: 12/10/2016 REFERRING PHYSICIAN: Dr. Kelly REASON FOR CONSULTATION: Fever. HISTORY OF PRESENT ILLNESS: This patient is an 89-year-old female with a history of chronic obstructive pulmonary disease, non-oxygen dependent, who was sent from [facility] with altered mental status changes and fever. I spoke with the person at the assisted living facility, who explained that the patient is usually alert and oriented. She normally propels herself in a wheelchair. She eats a regular diet. She has frequent UTIs. No cough or increased work of breathing reported. On arrival to the ER, she had a temperature of 101.8. She was tachypneic and hypoxic with oxygen saturations in the 80s on room air requiring supplemental oxygen. A chest x-ray revealed no gross congestive heart failure. Volume loss in the left lower lobe suggested. May reflect atelectasis and pleural fluid. No pneumothorax. White blood cell count was 12,500. A urinalysis was suggestive of infection. Urinalysis is positive for wbc's, leukocyte esterase, nitrites and bacteria. Urine culture, gram-positive ____ DICTATION ENDS HERE STEPHANIE GALLOWAY MD DR: CUCA/lucrecia JOB#: [id number] / [id number]
[2016-12-11 06:17] LABS: BASO % 0 % (0-3); EOS % 1 % (0-3); HEMATOCRIT 31.6 % (36.0-47.0); HEMOGLOBIN 10.1 g/dL (12.0-15.5); LYMPH % 33 % (24-48); MEAN CORPUSCULAR HEMOGLOBIN 28 pg (25-35); MEAN CORPUSCULAR HGB CONC 32 g/dL (31-37); MEAN CORPUSCULAR VOLUME 88 fL (79-100); MONO % 10 % (0-9); NEUT % 56 % (31-73); PLATELET COUNT 114 x10^3/uL (140-400); RED BLOOD COUNT 3.58 x10^6/uL (3.50-5.40); RED CELL DISTRIBUTION WIDTH 17.6 % (11.5-14.5); WHITE BLOOD COUNT 12.3 x10^3/uL (4.0-11.0)
[2016-12-11 06:41] LABS: CALCIUM 8.8 mg/dL (8.5-10.1); CREATININE 1.1 mg/dL (0.6-1.0); GFR 46.8; POTASSIUM 3.6 mmol/L (3.5-5.1)
[2016-12-11 07:00] VITALS: BP 150/57
--- NOTE | 2016-12-11 08:29 | PDOC ---
GENERAL General: vss and afebrile. much more awake and alert today. no major complaints. gram negative rods on initial urine culture. chest essentially clear and heart same. start therapy. otherwise same. Problems: VITAL SIGNS Vital Signs: Vital Signs Date Time Temp Pulse Resp B/P (MAP) Pulse Ox O2 Delivery O2 Flow Rate FiO2 12/11/16 07:00 98.3 72 20 150/57 (88) 97 Room Air 98.3 12/11/16 03:00 2.0 I & O I & O Intake and Output 12/11/16 06:59 Intake Total 540 ml Balance 540 ml Intake Oral 440 ml IV Total 100 ml # Voids 4 ALLERGIES Allergies: Allergies Coded Allergies Type Severity Reaction Last Updated Verified meperidine Allergy Intermediate 12/30/14 Yes phenobarbital Allergy Intermediate 09/02/14 Yes MEDS Medications: Current Medications Medications (Trade) Dose Ordered Sig/Bharath Start Time Stop Time Status Last Admin Dose Admin Acetaminophen (Tylenol) 650 mg PRN BID PRN 12/09/16 14:30 Acetaminophen/ Hydrocodone Bitart (Lortab 5/325) 1 tab PRN Q6HRS PRN 12/09/16 14:30 Albuterol/ Ipratropium (Duoneb) 3 ml RTQID 12/10/16 20:00 12/10/16 20:07 3 ML Alprazolam (Xanax) 0.25 mg PRN TID PRN 12/09/16 14:30 12/10/16 10:09 0.25 MG Amitriptyline HCl (Amitriptyline HCl) 50 mg HS 12/09/16 21:00 12/10/16 21:05 50 MG Amlodipine Besylate (Norvasc) 5 mg HS 12/09/16 21:00 12/10/16 21:05 5 MG Aspirin (Ecotrin) 81 mg DAILY08 12/09/16 15:00 12/10/16 10:09 81 MG Carvedilol (Coreg) 12.5 mg BIDWMEALS 12/09/16 17:00 12/10/16 18:25 12.5 MG Cefepime HCl 2 gm/ Sodium Chloride 100 ml @ 200 mls/hr 1X ONCE 12/09/16 09:00 12/09/16 09:29 DC 12/09/16 09:32 200 MLS/HR Celecoxib (CeleBREX) 200 mg DAILY 12/10/16 09:00 12/10/16 10:09 200 MG Clopidogrel Bisulfate (Plavix) 75 mg DAILY 12/10/16 09:00 12/10/16 10:09 75 MG Docusate Sodium (Colace) 100 mg BID 12/09/16 21:00 12/10/16 21:00 100 MG Furosemide (Lasix) 20 mg DAILY 12/10/16 09:00 12/10/16 10:09 20 MG Lisinopril (Prinivil) 5 mg DAILY 12/10/16 09:00 12/10/16 10:00 5 MG Magnesium Hydroxide (Milk Of Magnesia) 2,400 mg PRN DAILY PRN 12/09/16 14:30 Metoclopramide HCl (Reglan) 5 mg QID 12/09/16 17:00 12/10/16 18:18 5 MG Ondansetron HCl (Zofran) 4 mg PRN Q8HRS PRN 12/09/16 11:15 12/10/16 11:14 DC Pantoprazole Sodium (Protonix) 40 mg DAILYAC 12/10/16 07:30 12/10/16 10:09 40 MG Prednisone (Prednisone) 10 mg DAILY08 12/10/16 08:00 12/10/16 10:10 10 MG Senna/Docusate Sodium (Senna Plus) 1 tab BID 12/09/16 21:00 12/10/16 21:03 1 TAB Sodium Chloride 1,000 ml @ 292 mls/hr Q3H26M 12/09/16 09:32 12/09/16 17:57 DC 12/09/16 17:48 292 MLS/HR Vancomycin HCl 1 each 1X ONCE 12/11/16 10:00 12/11/16 10:01 Cancel Vancomycin HCl (Vanco Per Pharmacy) 1 each PRN DAILY PRN 12/09/16 09:00 12/09/16 14:32 DC 12/09/16 13:35 1 EACH Vancomycin HCl 1.25 gm/Sodium Chloride 250 ml @ 167 mls/hr Q24H 12/10/16 10:30 12/10/16 10:30 DC Vancomycin HCl 2 gm/Sodium Chloride 500 ml @ 250 mls/hr 1X ONCE 12/09/16 10:00 12/09/16 11:59 DC 12/09/16 10:30 250 MLS/HR Vitamin D (Vitamin D3) 1,000 unit DAILY08 12/10/16 08:00 12/10/16 10:09 1,000 UNIT LAB Lab: Laboratory Tests Test 12/10/16 11:40 12/11/16 05:40 12/11/16 05:45 White Blood Count 11.4 x10^3/uL (4.0-11.0) 12.3 x10^3/uL (4.0-11.0) Red Blood Count 3.84 x10^6/uL (3.50-5.40) 3.58 x10^6/uL (3.50-5.40) Hemoglobin 10.9 g/dL (12.0-15.5) 10.1 g/dL (12.0-15.5) Hematocrit 34.2 % (36.0-47.0) 31.6 % (36.0-47.0) Mean Corpuscular Volume 89 fL (79-100) 88 fL (79-100) Mean Corpuscular Hemoglobin 29 pg (25-35) 28 pg (25-35) Mean Corpuscular Hemoglobin Concent 32 g/dL (31-37) 32 g/dL (31-37) Red Cell Distribution Width 17.5 % (11.5-14.5) 17.6 % (11.5-14.5) Platelet Count 109 x10^3/uL (140-400) 114 x10^3/uL (140-400) Neutrophils (%) (Auto) 59 % (31-73) 56 % (31-73) Lymphocytes (%) (Auto) 32 % (24-48) 33 % (24-48) Monocytes (%) (Auto) 7 % (0-9) 10 % (0-9) Eosinophils (%) (Auto) 2 % (0-3) 1 % (0-3) Basophils (%) (Auto) 1 % (0-3) 0 % (0-3) Neutrophils # (Auto) 6.7 x10^3uL (1.8-7.7) 6.9 x10^3uL (1.8-7.7) Lymphocytes # (Auto) 3.7 x10^3/uL (1.0-4.8) 4.0 x10^3/uL (1.0-4.8) Monocytes # (Auto) 0.8 x10^3/uL (0.0-1.1) 1.2 x10^3/uL (0.0-1.1) Eosinophils # (Auto) 0.2 x10^3/uL (0.0-0.7) 0.1 x10^3/uL (0.0-0.7) Basophils # (Auto) 0.1 x10^3/uL (0.0-0.2) 0.0 x10^3/uL (0.0-0.2) Sodium Level 143 mmol/L (136-145) Potassium Level 3.6 mmol/L (3.5-5.1) Chloride Level 109 mmol/L (98-107) Carbon Dioxide Level 25 mmol/L (21-32) Anion Gap 9 (6-14) Blood Urea Nitrogen 20 mg/dL (7-20) Creatinine 1.1 mg/dL (0.6-1.0) Estimated GFR (Cockcroft-Gault) 46.8 Glucose Level 108 mg/dL (70-99) Calcium Level 8.8 mg/dL (8.5-10.1) REY ARGUETA MD Dec 11, 2016 08:29
[2016-12-11] MEDS: CEFEPIME HCL 2 GM in IV NORMAL SALINE 100ML 100 ML IV SCH ×2 (08:57→21:13)
[2016-12-11] MEDS: PANTOPRAZOLE 40 MG TABLET.DR. PO SCH (08:57)
[2016-12-11] MEDS: CELECOXIB 200 MG CAPSULE. PO SCH (08:57)
[2016-12-11] MEDS: CHOLECALCIFEROL (VITAMIN D3) 1,000 UNIT TABLET PO SCH (08:58)
[2016-12-11] MEDS: ASPIRIN ENTERIC COATED 81 MG TABLET.DR. PO SCH (08:58)
[2016-12-11] MEDS: FUROSEMIDE 20 MG TABLET PO SCH (08:58)
[2016-12-11] MEDS: LISINOPRIL 5 MG TABLET. PO SCH (08:58)
[2016-12-11] MEDS: CLOPIDOGREL BISULFATE 75 MG TABLET PO SCH (08:58)
[2016-12-11] MEDS: DOCUSATE SODIUM 100 MG CAPSULE. PO SCH ×2 (08:59→21:13)
[2016-12-11] MEDS: METOCLOPRAMIDE 10 MG TABLET. PO SCH ×4 (08:59→21:13)
[2016-12-11] MEDS: SENNOSIDES/DOCUSATE 8.6/50MG TABLET. PO SCH ×2 (08:59→21:13)
[2016-12-11] MEDS: predniSONE 10 MG TABLET PO SCH (08:59)
[2016-12-11] MEDS: CARVEDILOL 12.5 MG TABLET. PO SCH ×2 (08:59→17:00)
[2016-12-11] MEDS: IPRATRPIUM/ALBUTEROL 0.5/2.5MG 3 ML NEBU. NEB SCH ×4 (09:19→18:16)
--- NOTE | 2016-12-11 10:02 | PDOC ---
Infectious Disease Note Subjective Subjective Feeling better Denies pain, SOA, CP or cough Remains on supplemental O2 No fever last 24 hours ROS ROS GEN: Denies chills, sweats GI: Denies n/v/d NEURO: Denies confusion Vital Sign Vital Signs Vital Signs Date Time Temp Pulse Resp B/P (MAP) Pulse Ox O2 Delivery O2 Flow Rate FiO2 12/11/16 09:20 97 Nasal Cannula 2.0 12/11/16 08:59 72 150/57 12/11/16 07:00 98.3 20 98.3 Physical Exam PHYSICAL EXAM GENERAL: Propped up in bed, relaxed appearance LUNGS: Diminished aeration bases, nonlabored HEART: S1S2 ABD: Obese, soft, NT EXT: No edema, no cyanosis INFORMATION SERVICES MANAGER: More alert, oriented x 3 SKIN: No rash IV: ok Labs Lab Laboratory Tests Test 12/10/16 11:40 12/11/16 05:40 12/11/16 05:45 White Blood Count 11.4 x10^3/uL (4.0-11.0) 12.3 x10^3/uL (4.0-11.0) Red Blood Count 3.84 x10^6/uL (3.50-5.40) 3.58 x10^6/uL (3.50-5.40) Hemoglobin 10.9 g/dL (12.0-15.5) 10.1 g/dL (12.0-15.5) Hematocrit 34.2 % (36.0-47.0) 31.6 % (36.0-47.0) Mean Corpuscular Volume 89 fL (79-100) 88 fL (79-100) Mean Corpuscular Hemoglobin 29 pg (25-35) 28 pg (25-35) Mean Corpuscular Hemoglobin Concent 32 g/dL (31-37) 32 g/dL (31-37) Red Cell Distribution Width 17.5 % (11.5-14.5) 17.6 % (11.5-14.5) Platelet Count 109 x10^3/uL (140-400) 114 x10^3/uL (140-400) Neutrophils (%) (Auto) 59 % (31-73) 56 % (31-73) Lymphocytes (%) (Auto) 32 % (24-48) 33 % (24-48) Monocytes (%) (Auto) 7 % (0-9) 10 % (0-9) Eosinophils (%) (Auto) 2 % (0-3) 1 % (0-3) Basophils (%) (Auto) 1 % (0-3) 0 % (0-3) Neutrophils # (Auto) 6.7 x10^3uL (1.8-7.7) 6.9 x10^3uL (1.8-7.7) Lymphocytes # (Auto) 3.7 x10^3/uL (1.0-4.8) 4.0 x10^3/uL (1.0-4.8) Monocytes # (Auto) 0.8 x10^3/uL (0.0-1.1) 1.2 x10^3/uL (0.0-1.1) Eosinophils # (Auto) 0.2 x10^3/uL (0.0-0.7) 0.1 x10^3/uL (0.0-0.7) Basophils # (Auto) 0.1 x10^3/uL (0.0-0.2) 0.0 x10^3/uL (0.0-0.2) Sodium Level 143 mmol/L (136-145) Potassium Level 3.6 mmol/L (3.5-5.1) Chloride Level 109 mmol/L (98-107) Carbon Dioxide Level 25 mmol/L (21-32) Anion Gap 9 (6-14) Blood Urea Nitrogen 20 mg/dL (7-20) Creatinine 1.1 mg/dL (0.6-1.0) Estimated GFR (Cockcroft-Gault) 46.8 Glucose Level 108 mg/dL (70-99) Calcium Level 8.8 mg/dL (8.5-10.1) Micro URINE CULTURE RES 1 Preliminary Gram negative rods Greater than 100,000 colony forming units per mL URINE CULTURE RES 2 Preliminary Gram negative rods BLOOD CULTURE Preliminary NO GROWTH AFTER 2 DAYS Objective Assessment Fever GNR UTI. POA, 12/09 (2 spp) Acute encephalopathy, improved Hypoxia, AECOPD vs HCAP h/o Enterobacter & E. coli R quinolones Plan Plan of Care Clinically improving, Cefepime await GNR ID On steroids Monitor temp, WBC and Cr Supportive care Attending Co-Sign The patient was seen and interviewed as well as examined at the bedside. The chart was reviewed. The case was discussed. Agree with the plan of care. TANIKA FONG APRN Dec 11, 2016 10:02 STEPHANIE GALLOWAY MD Dec 11, 2016 14:50
--- NOTE | 2016-12-11 10:18 | CONS ---
DATE OF CONSULTATION: 12/10/2016 REFERRING PHYSICIAN: Dr. Rosales. REASON FOR CONSULTATION: Fever. HISTORY OF PRESENT ILLNESS: This patient is an 89-year-old female with a history of chronic obstructive pulmonary disease, non-oxygen dependent, who was sent from [facility] with altered mental status changes and fever. I spoke with the person at the [facility], who explained that the patient is usually alert and oriented. She normally propels herself in a wheelchair. She eats a regular diet. She has frequent UTIs. No cough or increased work of breathing reported. On arrival to the ER, she had a temperature of 101.8. She was tachypneic and hypoxic with oxygen saturations in the 80s on room air requiring supplemental oxygen. A chest x-ray revealed no gross congestive heart failure. Volume loss in the left lower lobe suggested. May reflect atelectasis and pleural fluid. No pneumothorax. White blood cell count was 12,500. A urinalysis was suggestive of infection. Urinalysis is positive for wbc's, leukocyte esterase, nitrites and bacteria. Urine culture, gram-positive ____ Blood cultures are negative so far. The patient was dosed with vancomycin and cefepime. ID has been asked to consult for further evaluation and antibiotic management. PAST MEDICAL HISTORY: Urinary tract infections associated with Enterobacter and E. coli resistant to quinolones and nitrofurantoin, ampicillin, ampicillin/sulbactam, ____ tetracycline and Bactrim. Coronary artery disease, congestive heart failure, cerebrovascular accident, hyperlipidemia, hypertension, chronic obstructive pulmonary disease, arthritis, anxiety and severe gastroesophageal reflux disease. PAST SURGICAL HISTORY: Coronary artery bypass graft, closed reduction, intramedullary nailing, right femur fracture. SOCIAL HISTORY: The patient resides at [facility]. She is a . Nonsmoker. ALLERGIES: DEMEROL AND PHENOBARBITAL. MEDICATIONS: Reviewed in the MAR. Include vancomycin, cefepime and prednisone. REVIEW OF SYSTEMS: NEUROLOGIC: The patient is lethargic with decreased attention span. She is oriented to place. Answers simple questions appropriately. Denies cough, shortness of air or chest discomfort. Denies upset stomach. Denies difficulty swallowing. Further review of systems limited. PHYSICAL EXAMINATION: GENERAL: female, propped up in bed, in no apparent distress. VITAL SIGNS: Temperature is 98.8, T-max 102.2, blood pressure 125/60, heart rate 87, respiratory rate 20, pulse oximetry is 94% on 2 liters nasal cannula. Weight is 187 pounds. HEENT: Pupils equally round. Oral mucosa is pink and dry. Edentulous, upper dentures in place. LUNGS: Diminished aeration in the bases. Nonlabored. HEART: Normal S1 and S2. ABDOMEN: Obese, bowel sounds are present, soft. No grimace or guarding to palpation. EXTREMITIES: Generalized trace edema. No cyanosis. SKIN: Without rash. Warm to touch. NEUROLOGIC: Arouses easily to name, but attention span is decreased. Answers simple questions appropriately. LABORATORY DATA: Today's WBC 11.4, hemoglobin 10.9, platelet count 109,000. Sodium 144, potassium 4.0, creatinine 1.2, BUN 18, glucose 105. Lactic acid 0.6. Total bilirubin 0.5, AST 19, ALT 19. Troponin 0.074. Albumin 2.5. Urine toxicology positive for opiates. Urinalysis and cultures per HPI. Chest x-ray per HPI. IMPRESSION: 1. Fever. 2. Gram-negative rods, urinary tract infection, present on admission. 3. Acute encephalopathy. 4. Hypoxia, acute exacerbation of chronic obstructive pulmonary disease versus healthcare-associated pneumonia possibly. PLAN: Continue the antibiotics. Await GNR identification. Monitor temperature, WBC count and creatinine. Supportive care. Thank you, Dr. Rsoales for asking us to participate in this patient's care. Should you have further questions or concerns, please call. STEPHANIE GALLOWAY MD DR: CUCA/lucrecia JOB#: [id number] / [id number]
[2016-12-11 10:59] VITALS: BP 119/55
[2016-12-11 15:00] VITALS: BP 92/59
[2016-12-11 19:00] VITALS: BP 105/46
[2016-12-11] MEDS: amLODIPine BESYLATE 5 MG TABLET PO SCH (21:00)
[2016-12-11] MEDS: AMITRIPTYLINE HCL 50 MG TABLET PO SCH (21:00)
[2016-12-11 23:00] VITALS: BP 136/63
[2016-12-12 03:00] VITALS: BP 156/67
[2016-12-12 07:00] VITALS: BP 158/68
[2016-12-12] MEDS: IPRATRPIUM/ALBUTEROL 0.5/2.5MG 3 ML NEBU. NEB SCH ×2 (07:15→11:47)
--- NOTE | 2016-12-12 08:20 | PDOC ---
GENERAL General: vss and afebrile. awake and alert and confused. 2 strains klebsiella in urine and will cover with cipro po and transfer back to assisted living today as patient really wants to "go home". exam stable. Problems: VITAL SIGNS Vital Signs: Vital Signs Date Time Temp Pulse Resp B/P (MAP) Pulse Ox O2 Delivery O2 Flow Rate FiO2 12/12/16 07:17 Nasal Cannula 2.0 12/12/16 07:00 97.5 80 20 158/68 (98) 96 97.5 I & O I & O Intake and Output 12/12/16 07:00 Intake Total 930 ml Output Total 400 ml Balance 530 ml Intake Oral 830 ml IV Total 100 ml Output Urine Total 400 ml # Voids 7 # Bowel Movements 1 ALLERGIES Allergies: Allergies Coded Allergies Type Severity Reaction Last Updated Verified meperidine Allergy Intermediate 12/30/14 Yes phenobarbital Allergy Intermediate 09/02/14 Yes MEDS Medications: Current Medications Medications (Trade) Dose Ordered Sig/Bharath Start Time Stop Time Status Last Admin Dose Admin Acetaminophen (Tylenol) 650 mg PRN BID PRN 12/09/16 14:30 Acetaminophen/ Hydrocodone Bitart (Lortab 5/325) 1 tab PRN Q6HRS PRN 12/09/16 14:30 Albuterol/ Ipratropium (Duoneb) 3 ml RTQID 12/10/16 20:00 12/12/16 07:15 3 ML Alprazolam (Xanax) 0.25 mg PRN TID PRN 12/09/16 14:30 12/10/16 10:09 0.25 MG Amitriptyline HCl (Amitriptyline HCl) 50 mg HS 12/09/16 21:00 12/11/16 21:00 50 MG Amlodipine Besylate (Norvasc) 5 mg HS 12/09/16 21:00 12/10/16 21:05 5 MG Aspirin (Ecotrin) 81 mg DAILY08 12/09/16 15:00 12/11/16 08:58 81 MG Carvedilol (Coreg) 12.5 mg BIDWMEALS 12/09/16 17:00 12/11/16 08:59 12.5 MG Cefepime HCl 2 gm/ Sodium Chloride 100 ml @ 200 mls/hr 1X ONCE 12/09/16 09:00 12/09/16 09:29 DC 12/09/16 09:32 200 MLS/HR Celecoxib (CeleBREX) 200 mg DAILY 12/10/16 09:00 12/11/16 08:57 200 MG Clopidogrel Bisulfate (Plavix) 75 mg DAILY 12/10/16 09:00 12/11/16 08:58 75 MG Docusate Sodium (Colace) 100 mg BID 12/09/16 21:00 12/11/16 21:13 100 MG Furosemide (Lasix) 20 mg DAILY 12/10/16 09:00 12/11/16 08:58 20 MG Lisinopril (Prinivil) 5 mg DAILY 12/10/16 09:00 12/11/16 08:58 5 MG Magnesium Hydroxide (Milk Of Magnesia) 2,400 mg PRN DAILY PRN 12/09/16 14:30 Metoclopramide HCl (Reglan) 5 mg QID 12/09/16 17:00 12/11/16 21:13 5 MG Ondansetron HCl (Zofran) 4 mg PRN Q8HRS PRN 12/09/16 11:15 12/10/16 11:14 DC Pantoprazole Sodium (Protonix) 40 mg DAILYAC 12/10/16 07:30 12/11/16 08:57 40 MG Prednisone (Prednisone) 10 mg DAILY08 12/10/16 08:00 12/11/16 08:59 10 MG Senna/Docusate Sodium (Senna Plus) 1 tab BID 12/09/16 21:00 12/11/16 21:13 1 TAB Sodium Chloride 1,000 ml @ 292 mls/hr Q3H26M 12/09/16 09:32 12/09/16 17:57 DC 12/09/16 17:48 292 MLS/HR Vancomycin HCl 1 each 1X ONCE 12/11/16 10:00 12/11/16 10:01 Cancel Vancomycin HCl (Vanco Per Pharmacy) 1 each PRN DAILY PRN 12/09/16 09:00 12/09/16 14:32 DC 12/09/16 13:35 1 EACH Vancomycin HCl 1.25 gm/Sodium Chloride 250 ml @ 167 mls/hr Q24H 12/10/16 10:30 12/10/16 10:30 DC Vancomycin HCl 2 gm/Sodium Chloride 500 ml @ 250 mls/hr 1X ONCE 12/09/16 10:00 12/09/16 11:59 DC 12/09/16 10:30 250 MLS/HR Vitamin D (Vitamin D3) 1,000 unit DAILY08 12/10/16 08:00 12/11/16 08:58 1,000 UNIT REY ARGUETA MD Dec 12, 2016 08:20
[2016-12-12] MEDS: PANTOPRAZOLE 40 MG TABLET.DR. PO SCH (08:29)
[2016-12-12] MEDS: ASPIRIN ENTERIC COATED 81 MG TABLET.DR. PO SCH (08:30)
[2016-12-12] MEDS: CARVEDILOL 12.5 MG TABLET. PO SCH (08:30)
[2016-12-12] MEDS: SENNOSIDES/DOCUSATE 8.6/50MG TABLET. PO SCH (08:30)
[2016-12-12] MEDS: LISINOPRIL 5 MG TABLET. PO SCH (08:30)
[2016-12-12] MEDS: predniSONE 10 MG TABLET PO SCH (08:30)
[2016-12-12] MEDS: FUROSEMIDE 20 MG TABLET PO SCH (08:31)
[2016-12-12] MEDS: CHOLECALCIFEROL (VITAMIN D3) 1,000 UNIT TABLET PO SCH (08:31)
[2016-12-12] MEDS: DOCUSATE SODIUM 100 MG CAPSULE. PO SCH (08:31)
[2016-12-12] MEDS: CEFEPIME HCL 2 GM in IV NORMAL SALINE 100ML 100 ML IV SCH ×2 (08:31→09:00)
[2016-12-12] MEDS: METOCLOPRAMIDE 10 MG TABLET. PO SCH (08:31)
[2016-12-12] MEDS: CLOPIDOGREL BISULFATE 75 MG TABLET PO SCH (08:31)
[2016-12-12] MEDS: CELECOXIB 200 MG CAPSULE. PO SCH (08:31)
[2016-12-12] MEDS ORDERED: CIPROFLOXACIN HCL 250 MG TABLET. PO SCH (10:30)
[2016-12-12 11:00] VITALS: BP 128/59
== END 2016-12-12 11:30 | DRG 871 ==
LOC: ER 07:26 → 5 NORTH 08:49
PROVIDERS: ADMIT Family Medicine; ATTEND Family Medicine
DX: A41.9 Sepsis, unspecified organism (principal); G93.40 Encephalopathy, unspecified; N39.0 Urinary tract infection, site not specified; E44.0 Moderate protein-calorie malnutrition; J44.1 Chronic obstructive pulmonary disease with (acute) exacerbation; E78.00 Pure hypercholesterolemia, unspecified; E78.5 Hyperlipidemia, unspecified; I11.0 Hypertensive heart disease with heart failure; I25.10 Atherosclerotic heart disease of native coronary artery without angina pectoris; I50.9 Heart failure, unspecified; K21.9 Gastro-esophageal reflux disease without esophagitis; B96.89 Other specified bacterial agents as the cause of diseases classified elsewhere; G89.29 Other chronic pain; R10.9 Unspecified abdominal pain; M19.90 Unspecified osteoarthritis, unspecified site; K59.00 Constipation, unspecified; F41.9 Anxiety disorder, unspecified; F32.9 Major depressive disorder, single episode, unspecified; R09.02 Hypoxemia; Z87.81 Personal history of (healed) traumatic fracture; Z88.8 Allergy status to other drugs, medicaments and biological substances; Z86.73 Personal history of transient ischemic attack (TIA), and cerebral infarction without residual deficits; Z95.1 Presence of aortocoronary bypass graft; I25.2 Old myocardial infarction
CPT/HCPCS: 36415; 51701; 71010; 80048; 80053; 81001; 83605; 83880; 84484; 85027; 87040; 87086; 87186; 87641; 93005; 94640; 94760; 96365; 96367; G0481; J0692; J3370; J7030; J7040; J7512; J7620; J8597; 97110; 97530; 97535; 99285-25